=== PATIENT | female | born 1980 | race African-American/Black ===

== ENCOUNTER 2019-06-30 15:50 | Emergency (ER) | payer MEDICAID, OTHER ==
[~2019-06-30] VITALS: Ht 154.9 cm; Wt 81.6 kg
--- NOTE | 2019-06-30 16:12 | NUR ---
SPOKE FROM BELKIS FROM [facility] [phone]
--- NOTE | 2019-06-30 17:11 | NUR ---
[facility] CALLED BACK TO INFORM THE STAFF THAT THE DESIGNATED BED FOR THE PATIENT HAD ALREADY BEEN GIVEN AWAY. REQUESTING FOR NEW CLINICAL REPORT FROM ER TO BE FAXED OVER TO FAX [phone] FOR A NEW REVIEW OF PSYCH BED REQUEST.
[2019-06-30 17:23] LABS: BASOPHILS % (AUTO) 0.4 % (0.0-2.0); EOSINOPHILS # (AUTO) 0.1 K/uL (0.0-0.7); EOSINOPHILS % (AUTO) 1.2 % (0.0-7.0); HEMATOCRIT 35.5 % (31.2-41.9); HEMOGLOBIN 11.6 g/dL (10.9-14.3); LYMPHOCYTES # (AUTO) 3.7 K/uL (20.0-40.0); LYMPHOCYTES % (AUTO) 31.7 % (20.5-51.5); MEAN CORPUSCULAR HGB CONC 33 g/dL (32.3-35.6); MEAN CORPUSCULAR VOLUME 82.7 fL (75.5-95.3); MONOCYTES # (AUTO) 0.7 K/uL (2.0-10.0); MONOCYTES % (AUTO) 6.1 % (0.0-11.0); NEUTROPHILS # (AUTO) 7.1 K/uL (1.8-8.9); NEUTROPHILS % (AUTO) 60.6 % (38.5-71.5); PLATELET COUNT (AUTO) 319 K/uL (179-408); RED BLOOD CELL COUNT(AUTO) 4.29 MIL/uL (3.63-4.92); WHITE BLOOD COUNT (AUTO) 11.7 K/uL (3.8-11.8)
[2019-06-30 17:29] LABS: CARBON DIOXIDE 32 mmol/L (21-32); CHLORIDE 102 mmol/L (98-107); CREATININE 0.6 mg/dL (0.6-1.3); GLUCOSE 73 mg/dL (74-106); POTASSIUM 3.8 mmol/L (3.5-5.1); UREA NITROGEN, BLOOD 12 mg/dL (7-18)
--- NOTE | 2019-06-30 17:30 | NUR ---
HOSPITAL DINNER TRAY AT BEDSIDE. PT EATING WITH GOOD APETITE.
[2019-06-30 17:35] LABS: ACETAMINOPHEN < 2.0 ug/mL (10-30); ALANINE AMINOTRANSFERASE 15 U/L (14-59); ALKALINE PHOSPHATASE 99 U/L (50-136); ASPARTATE AMINOTRANSFERASE 13 U/L (15-37); BILIRUBIN,DIRECT 0.1 mg/dL (0.0-0.2); BILIRUBIN,TOTAL 0.2 mg/dL (0.2-1.0)
[2019-06-30] MEDS ORDERED: OLANZAPINE 5 MG TABLET PO ONE (17:45)
[2019-06-30 18:07] LABS: ETHANOL < 3 MG/DL (0-0)
[2019-06-30] MEDS ORDERED: OLANZAPINE 5 MG TABLET ONE (18:09)
--- NOTE | 2019-06-30 19:01 | NUR ---
refaxed the clinincals to [facility] intake.
--- NOTE | 2019-06-30 20:00 | NUR ---
Called [facility] intake on transfer info. Intakes states they have not reviewed chart yet and will call for updates.
[2019-06-30] MEDS ORDERED: GUAIFENESIN/CODEINE 5 ML LIQUID UDC PO ONE (20:45)
[2019-06-30] MEDS ORDERED: GUAIFENESIN/CODEINE 5 ML LIQUID UDC ONE (20:52)
--- NOTE | 2019-06-30 21:47 | NUR ---
Called [facility]ida [phone] intake from [facility] intake who states fax was not recieved earlier today. Refaxed paper work to .
[2019-06-30] MEDS ORDERED: BENZONATATE 100 MG CAPSULE ONE (22:34)
[2019-06-30] MEDS ORDERED: BENZONATATE 100 MG CAPSULE PO ONE (22:45)
[2019-06-30 22:52] LABS: *BILIRUBIN,URIN NEGATIVE (NEGATIVE); *BLOOD, URINE NEGATIVE (NEGATIVE); *CLARITY,URINE CLEAR (CLEAR); *COLOR,URINE YELLOW (YELLOW); *KETONES,URINE NEGATIVE (NEGATIVE); LEUKOCYTE ESTERASE ,URINE NEGATIVE (NEGATIVE); NITRITE, URINE NEGATIVE (NEGATIVE); PH,URINE 7.5 (5.0-8.0); UGLUCOSE NEGATIVE (NEGATIVE)
--- NOTE | 2019-06-30 22:55 | NUR ---
[facility] psych intake requesting UA,UDS prior to accepting patient.
[2019-06-30 22:59] LABS: *URINE HCG, QUAL NEGATIVE (NEGATIVE)
[2019-06-30 23:01] LABS: BACTERIA,URINE NONE SEEN /HPF (NONE SEEN); MUCUS,URINE FEW /LPF (0-FEW); RBC,URINE 0-3 /HPF (0-3); SQUAMOUS EPITHELIAL CELL,UR MANY /HPF (NONE SEEN); WBC,URINE 0-3 /HPF (0-3)
[2019-06-30 23:02] LABS: *AMPHETAMINE, URINE NEGATIVE (NEGATIVE); *BARBITURATE, URINE NEGATIVE (NEGATIVE); *CANNABINOID, URINE NEGATIVE (NEGATIVE); *COCCAINE, URINE POSITIVE (NEGATIVE); *OPIATE, URINE POSITIVE (NEGATIVE); *PHENCYCLIDINE SCREEN,URINE NEGATIVE (NEGATIVE)
--- NOTE | 2019-06-30 23:15 | NUR ---
Faxed UA result to [facility].
--- NOTE | 2019-06-30 23:55 | NUR ---
[facility] intake called back with transfer info. Patient will be going [facility] unit [address] bed [address]. Dr Garrido will be accepting patient. Call for report is [phone] or [phone].
--- NOTE | 2019-07-01 00:03 | NUR ---
CALLED [facility] WHO IS UNABLE TO TRANSFER PATIENT [phone].
--- NOTE | 2019-07-01 00:15 | NUR ---
[employer] GAVE A TRIP # [id number]. WILL CALL BACK WITH
--- NOTE | 2019-07-01 00:58 | NUR ---
[facility] called back with KEVIN. 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
--- NOTE | 2019-07-01 02:20 | NUR ---
[facility].
--- NOTE | 2019-07-01 02:23 | NUR ---
Gave SBAR report to JÚNIOR nurse from [facility].
== END 2019-07-01 02:29 | disposition short-term general hospital (02) ==
LOC: ER 15:53
DX: F29 Unspecified psychosis not due to a substance or known physiological condition (principal); F20.9 Schizophrenia, unspecified; F15.90 Other stimulant use, unspecified, uncomplicated; F14.10 Cocaine abuse, uncomplicated; Z88.8 Allergy status to other drugs, medicaments and biological substances
CPT/HCPCS: 36415; 80048; 80076; 80307; 81000; 81001; 84703; 85025; 93005; 99285; G0480 ×2; G0481; A4663